=== PATIENT | female | born 1965 | race African-American/Black ===

== ENCOUNTER 2016-10-30 04:26 | Emergency (ER) | payer OTHER ==
[2016-10-30] MEDS ORDERED: Ketorolac Tromethamine 60 MG/2 ML VIAL ONE (04:44)
== END 2016-10-30 05:05 | disposition home or self-care (01) ==
LOC: NAV ERS 04:26
DX: G89.29 Other chronic pain (principal); M79.605 Pain in left leg; F14.10 Cocaine abuse, uncomplicated; F31.9 Bipolar disorder, unspecified; F20.9 Schizophrenia, unspecified; F17.210 Nicotine dependence, cigarettes, uncomplicated
CPT/HCPCS: 96372; 99283; J1885

== ENCOUNTER 2016-10-30 06:28 | Emergency (ER) | payer OTHER | END 2016-10-30 06:57 | disposition home or self-care (01) | LOC: NAV ERS 06:28 | DX: M62.831 Muscle spasm of calf (principal); F17.210 Nicotine dependence, cigarettes, uncomplicated ==

== ENCOUNTER 2017-06-02 22:21 | Emergency (ER) | payer OTHER, SELFPAY ==
[2017-06-02] MEDS ORDERED: Sodium Chloride 0.9% 100 ML ONE (22:52)
[2017-06-02] MEDS ORDERED: diphenhydrAMINE 50 MG/ML VIAL ONE (22:52)
[2017-06-02] MEDS ORDERED: Metoclopramide HCl 10 MG/2 ML VIAL ONE (22:52)
[2017-06-02] MEDS ORDERED: Sodium Chloride 0.9% 1,000 ML ONE (22:52)
[2017-06-02 23:26] LABS: #Basophils 0.1 thou/uL (0.0-0.2); #Eosinphils 0.2 thou/uL (0.0-0.7); #Lymphocytes 1.9 thou/uL (1.20-3.40); #Monocytes 0.5 thou/uL (0.11-0.59); #Neutrophils 11.1 thou/uL (1.40-6.50); %Basophils 0.7 % (0.0-1.0); %Eosinophils 1.5 % (0.0-10.0); %Lymphocytes 13.4 % (21.0-51.0); %Monocytes 3.8 % (0.0-10.0); %Neutrophils 80.6 % (42.0-75.0); Hemoglobin 13.1 g/dL (12.0-16.0); Mean Corpuscular Hemoglobin 31.9 pg (27.0-31.0); Mean Corpuscular Volume 93.9 fl (81.0-99.0); Mean Platelet Volume 8.2 fL (7.4-10.4); Platelet Count 246 thou/uL (130-400); RBC Distribution Width 11.7 % (11.5-14.5); Red Blood Cell (RBC) Count 4.11 mill/uL (4.20-5.40); White Blood Cell (WBC) Count 13.8 thou/uL (4.8-10.8)
[2017-06-02 23:39] LABS: ALT (SGPT) 18 U/L (8-55); AST (SGOT) 21 U/L (5-34); Albumin 4.1 g/dL (3.5-5.0); Alkaline Phosphatase 75 U/L (40-150); Anion Gap 15 mmol/L (10-20); BUN (Urea Nitrogen) 13 mg/dL (9.8-20.1); Bilirubin, Total 0.2 mg/dL (0.2-1.2); Calc. Creatinine Clearance 0 mL/min (70-130); Calcium 8.9 mg/dL (7.8-10.44); Carbon Dioxide 21 mmol/L (22-29); Chloride 103 mmol/L (98-107); Estimated GFR-MDRD Greater than 90; Globulin 2.8 g/dL (2.4-3.5); Glucose 100 mg/dL (70-105); Potassium 3.8 mmol/L (3.5-5.1); Protein, Total 6.9 g/dL (6.0-8.3); Sodium 135 mmol/L (136-145)
== END 2017-06-03 01:54 | disposition home or self-care (01) ==
LOC: NAV ERS 22:21
DX: F14.10 Cocaine abuse, uncomplicated (principal); R51 Headache; F41.9 Anxiety disorder, unspecified; F31.9 Bipolar disorder, unspecified; F20.9 Schizophrenia, unspecified; F17.210 Nicotine dependence, cigarettes, uncomplicated; Z79.899 Other long term (current) drug therapy
CPT/HCPCS: 80053; 85025; 96361; 96365; 96375; J1200; J2765; J7050

== ENCOUNTER 2017-06-24 13:26 | Emergency (ER) | payer OTHER ==
[2017-06-24] MEDS ORDERED: Ketorolac Tromethamine 60 MG/2 ML VIAL ONE (13:46)
--- NOTE | 2017-06-24 15:27 | RAD ---
RIGHT ELBOW 4 VIEW SERIES: INDICATION: Pain and swelling. FINDINGS: No fracture or dislocation identified. There is heterotopic density about the olecranon bursa with a djacent enthesophyte formation. IMPRESSION: 1. No acute fracture. 2. Soft tissue density of the region of olecranon bursa with mild soft tissue prominence. There is adjacent enthesopathy of the olecranon process. POS: [facility]
== END 2017-06-24 14:32 | disposition home or self-care (01) ==
LOC: NAV ERS 13:26
DX: S83.92XA Sprain of unspecified site of left knee, initial encounter (principal); M25.521 Pain in right elbow; F31.9 Bipolar disorder, unspecified; F20.9 Schizophrenia, unspecified; F17.210 Nicotine dependence, cigarettes, uncomplicated; Z79.899 Other long term (current) drug therapy; W01.0XXA Fall on same level from slipping, tripping and stumbling without subsequent striking against object, initial encounter
CPT/HCPCS: 96372; J1885

== ENCOUNTER 2018-06-27 03:38 | Emergency (ER) | payer BC, OTHER | END 2018-06-27 04:24 | disposition home or self-care (01) | LOC: NAV ERS 03:38 | DX: M79.652 Pain in left thigh (principal); M25.512 Pain in left shoulder; M25.511 Pain in right shoulder; G89.29 Other chronic pain; Z79.899 Other long term (current) drug therapy | CPT/HCPCS: 99281 ==

== ENCOUNTER 2018-08-15 20:31 | Emergency (ER) | payer BC ==
[2018-08-15] MEDS ORDERED: HYDROcodone/Acetaminophen 5/325 mg Tablet ONE (21:09)
[2018-08-15] MEDS ORDERED: Naproxen 500 MG TAB ONE (21:09)
== END 2018-08-15 21:15 | disposition home or self-care (01) ==
LOC: NAV ERS 20:31
DX: S39.011A Strain of muscle, fascia and tendon of abdomen, initial encounter (principal); F20.9 Schizophrenia, unspecified; F31.9 Bipolar disorder, unspecified; Z79.899 Other long term (current) drug therapy; X58.XXXA Exposure to other specified factors, initial encounter
CPT/HCPCS: 99283

== ENCOUNTER 2018-09-02 04:00 | Emergency (ER) | payer BC | END 2018-09-02 04:30 | disposition home or self-care (01) | LOC: NAV ERS 04:00 | DX: K62.89 Other specified diseases of anus and rectum (principal); Z79.899 Other long term (current) drug therapy; Z79.891 Long term (current) use of opiate analgesic | CPT/HCPCS: 99281 ==

== ENCOUNTER 2018-09-07 19:05 | Emergency (ER) | payer BC | END 2018-09-07 19:29 | disposition home or self-care (01) | LOC: NAV ERS 19:05 | DX: S80.12XA Contusion of left lower leg, initial encounter (principal); Z71.6 Tobacco abuse counseling; F31.9 Bipolar disorder, unspecified; F20.9 Schizophrenia, unspecified; F17.210 Nicotine dependence, cigarettes, uncomplicated; Z79.899 Other long term (current) drug therapy; X58.XXXA Exposure to other specified factors, initial encounter | CPT/HCPCS: 99406 ==

== ENCOUNTER 2019-04-13 00:05 | Emergency (ER) | payer BC | END 2019-04-13 00:56 | disposition home or self-care (01) | LOC: NAV ERS 00:05 | DX: J31.2 Chronic pharyngitis (principal); F31.9 Bipolar disorder, unspecified; F20.9 Schizophrenia, unspecified; F17.210 Nicotine dependence, cigarettes, uncomplicated; Z79.899 Other long term (current) drug therapy | CPT/HCPCS: 87081; 87430; 99281 ==

== ENCOUNTER 2019-11-17 18:50 | Emergency (ER) | payer BC, OTHER | END 2019-11-17 19:20 | disposition home or self-care (01) | LOC: NAV ERS 18:50 | DX: L73.1 Pseudofolliculitis barbae (principal); F31.9 Bipolar disorder, unspecified; F17.210 Nicotine dependence, cigarettes, uncomplicated; F20.9 Schizophrenia, unspecified; Z71.6 Tobacco abuse counseling; Z79.899 Other long term (current) drug therapy | CPT/HCPCS: 99406 ==

== ENCOUNTER 2019-11-21 20:08 | Emergency (ER) | payer OTHER ==
[2019-11-21 20:44] LABS: Bilirubin Negative (Negative); Blood, Urine Trace (Negative); Glucose, Urine (Dipstick) Negative (Negative); Leukocyte Moderate (Negative); Nitrite Negative (Negative); Protein, Urine (Dipstick) Negative (Neg-Trace)
[2019-11-21 20:53] LABS: Clarity SL HAZY (Clear)
[2019-11-21 20:55] LABS: Bacteria/HPF 1+ HPF (None Seen); RBC/HPF 0-3 HPF (0-3); Squamous Epithelial 0-3 HPF (0-3); WBC/HPF 21-50 HPF (0-3)
[2019-11-21] MEDS ORDERED: metroNIDAZOLE 500 MG TAB ONE (21:38)
[2019-11-26 21:17] LABS: GC by PCR Inconclusive (NotDetected)
[2019-11-26 21:18] LABS: Chlamydia by PCR Inconclusive (NotDetected)
== END 2019-11-21 21:47 | disposition home or self-care (01) ==
LOC: NAV ERS 20:08
DX: N89.8 Other specified noninflammatory disorders of vagina (principal); F31.9 Bipolar disorder, unspecified; F20.9 Schizophrenia, unspecified; F17.210 Nicotine dependence, cigarettes, uncomplicated; Z79.899 Other long term (current) drug therapy
CPT/HCPCS: 81003; 81015; 87086; 87480; 87491; 87510; 87591; 87660; 99283

== ENCOUNTER 2020-05-31 06:55 | Emergency (ER) | payer OTHER ==
[2020-05-31] MEDS ORDERED: Ketorolac Tromethamine 60 MG/2 ML VIAL ONE (07:40)
== END 2020-05-31 07:50 | disposition home or self-care (01) ==
LOC: NAV ERS 06:55
DX: M54.5 Low back pain (principal); G89.29 Other chronic pain; F17.210 Nicotine dependence, cigarettes, uncomplicated; Z79.899 Other long term (current) drug therapy
CPT/HCPCS: 96372; 99283; J1885

== ENCOUNTER 2020-06-04 00:17 | Emergency (ER) | payer OTHER ==
[2020-06-04] MEDS ORDERED: Ketorolac Tromethamine 60 MG/2 ML VIAL ONE (00:33)
== END 2020-06-04 00:58 | disposition home or self-care (01) ==
LOC: NAV ERS 00:17
DX: M54.6 Pain in thoracic spine (principal); G89.29 Other chronic pain; F17.210 Nicotine dependence, cigarettes, uncomplicated
CPT/HCPCS: 96372; 99283; J1885

== ENCOUNTER 2020-07-18 06:32 | Emergency (ER) | payer OTHER ==
[2020-07-18] MEDS ORDERED: diphenhydrAMINE 50 MG/ML VIAL ONE (07:40)
[2020-07-18] MEDS ORDERED: Prochlorperazine 10 MG/2 ML VIAL ONE (07:40)
[2020-07-18] MEDS ORDERED: Ketorolac Tromethamine 30 MG/ML VIAL ONE (07:40)
[2020-07-18] MEDS ORDERED: Sodium Chloride 0.9% 1,000 ML ONE (07:40)
== END 2020-07-18 09:53 | disposition home or self-care (01) ==
LOC: NAV ERS 06:32
DX: R51.9 Headache, unspecified (principal); G89.29 Other chronic pain; M54.42 Lumbago with sciatica, left side; F17.210 Nicotine dependence, cigarettes, uncomplicated
CPT/HCPCS: J0780; J1200; J1885; J7050

== ENCOUNTER 2020-09-24 15:42 | Outpatient (CLI) | payer OTHER | END 2020-09-24 15:43 | disposition home or self-care (01) | LOC: NAV RAD 15:42 | PROVIDERS: ATTEND Family Medicine | DX: M25.511 Pain in right shoulder (principal); M19.011 Primary osteoarthritis, right shoulder ==

== ENCOUNTER 2020-10-15 19:17 | Emergency (ER) | payer OTHER ==
[2020-10-15 19:57] LABS: #Basophils 0.1 thou/uL (0.0-0.2); #Eosinphils 0.4 thou/uL (0.0-0.7); #Lymphocytes 4.4 thou/uL (1.20-3.40); #Monocytes 0.6 thou/uL (0.11-0.59); #Neutrophils 5.6 thou/uL (1.40-6.50); %Basophils 0.7 % (0.0-1.0); %Eosinophils 3.6 % (0.0-10.0); %Lymphocytes 39.9 % (21.0-51.0); %Monocytes 5.1 % (0.0-10.0); %Neutrophils 50.7 % (42.0-75.0); Hemoglobin 12.2 g/dL (12.0-16.0); Mean Corpuscular Hemoglobin 30.9 pg (27.0-31.0); Mean Corpuscular Volume 99.7 fL (78.0-98.0); Mean Platelet Volume 8.4 fL (7.4-10.4); Platelet Count 221 thou/uL (130-400); RBC Distribution Width 12.4 % (11.5-14.5); Red Blood Cell (RBC) Count 3.95 mill/uL (4.20-5.40)
[2020-10-15 20:04] LABS: Bilirubin Negative (Negative); Blood, Urine Negative (Negative); Clarity Clear (Clear); Glucose, Urine (Dipstick) Negative (Negative); Ketone, Urine Negative (Negative); Leukocyte Negative (Negative); Nitrite Negative (Negative); Protein, Urine (Dipstick) Negative (Neg-Trace); Specific Gravity, Urine 1.025 (1.005-1.030)
[2020-10-15] MEDS ORDERED: Lorazepam 0.5 MG TAB ONE (20:15)
[2020-10-15 20:18] LABS: Amphetamine Not Detected (NotDetected); Barbiturates Screen Not Detected (NotDetected); Benzodiazepine Screen Not Detected (NotDetected); Cocaine Metabolite Screen Not Detected (NotDetected); Medtox Control Line Valid? VALID (VALID); Methadone Not Detected (NotDetected); Methamphetamine Not Detected (NotDetected); Opiate Screen Not Detected (NotDetected); Oxycodone Screen Not Detected (NotDetected); Phencyclidine (PCP) Not Detected (NotDetected); THC/Cannabinoid Screen Not Detected (NotDetected); Tricyclic Screen Not Detected (NotDetected)
[2020-10-15 20:20] LABS: ALT (SGPT) 14 U/L (8-55); AST (SGOT) 17 U/L (5-34); Acetaminophen Less than 6.0 mcg/mL (10.0-30.0); Alcohol Less than 10 mg/dL (Less than 10); Alkaline Phosphatase 56 U/L (40-110); Anion Gap 14 mmol/L (10-20); BUN (Urea Nitrogen) 21 mg/dL (9.8-20.1); Bilirubin, Total 0.2 mg/dL (0.2-1.2); Calc. Creatinine Clearance 0 mL/min (70-130); Calcium 8.9 mg/dL (7.8-10.44); Carbon Dioxide 23 mmol/L (22-29); Chloride 107 mmol/L (98-107); Glucose 84 mg/dL (70-105); Protein, Total 6.8 g/dL (6.0-8.3); Salicylate Less than 8.0 mg/dL (15.0-30.0); Sodium 140 mmol/L (136-145)
[2020-10-15] MEDS ORDERED: Nicotine 21 MG PATCH TOP SCH (22:15)
[2020-10-15 22:27] LABS: SARS-CoV-2 NAA Rapid Test Not Detected (NotDetected)
[2020-10-16] MEDS ORDERED: diphenhydrAMINE 25 MG CAP ONE (01:54)
[2020-10-16] MEDS ORDERED: Ibuprofen 200 MG TAB ONE (10:37)
== END 2020-10-16 11:43 ==
LOC: NAV ERS 19:17
DX: F31.9 Bipolar disorder, unspecified (principal); F17.210 Nicotine dependence, cigarettes, uncomplicated; Z79.899 Other long term (current) drug therapy
CPT/HCPCS: 0240U; 36415; 80053; 80306; 80307; 81003; 84443; 85025; 99285; Q0163

== ENCOUNTER 2021-01-05 02:32 | Emergency (ER) | payer OTHER | END 2021-01-05 03:00 | disposition home or self-care (01) | LOC: NAV ERS 02:32 | DX: G89.29 Other chronic pain (principal); M79.605 Pain in left leg; M79.604 Pain in right leg; F17.210 Nicotine dependence, cigarettes, uncomplicated; Z79.899 Other long term (current) drug therapy | CPT/HCPCS: 99281 ==

== ENCOUNTER 2021-04-09 15:47 | Emergency (ER) | payer OTHER ==
[2021-04-09] MEDS ORDERED: Morphine 4 MG/ML VIAL ONE (16:19)
[2021-04-09] MEDS ORDERED: Sodium Chloride 0.9% 1,000 ML ONE (16:20)
[2021-04-09] MEDS ORDERED: Ondansetron PF 4 MG/2 ML Vial ONE (16:20)
[2021-04-09] MEDS ORDERED: Ketorolac Tromethamine 30 MG/ML VIAL ONE (16:26)
[2021-04-09] MEDS ORDERED: Prochlorperazine 10 MG/2 ML VIAL ONE (17:02)
[2021-04-09] MEDS ORDERED: diphenhydrAMINE 50 MG/ML VIAL ONE (17:12)
[2021-04-09] MEDS ORDERED: Acetaminophen 325 MG TAB ONE (17:50)
== END 2021-04-09 17:59 | disposition home or self-care (01) ==
LOC: NAV ERS 15:47
DX: M26.602 Left temporomandibular joint disorder, unspecified (principal); R51.9 Headache, unspecified; F17.210 Nicotine dependence, cigarettes, uncomplicated
CPT/HCPCS: 70450; 96374; 96375; J0780; J1200; J1885; J2270; J2405; J7050

== ENCOUNTER 2021-04-18 10:43 | Emergency (ER) | payer OTHER ==
[2021-04-18] MEDS ORDERED: Ketorolac Tromethamine 30 MG/ML VIAL ONE (11:06)
== END 2021-04-18 11:25 | disposition home or self-care (01) ==
LOC: NAV ERS 10:43
DX: K02.9 Dental caries, unspecified (principal); F17.210 Nicotine dependence, cigarettes, uncomplicated
CPT/HCPCS: J1885

== ENCOUNTER 2021-04-18 22:13 | Emergency (ER) | payer OTHER ==
[2021-04-18] MEDS ORDERED: Ketorolac Tromethamine 60 MG/2 ML VIAL ONE (22:33)
== END 2021-04-18 22:52 | disposition home or self-care (01) ==
LOC: NAV ERS 22:13
DX: G89.18 Other acute postprocedural pain (principal); K08.89 Other specified disorders of teeth and supporting structures; K02.9 Dental caries, unspecified; F17.210 Nicotine dependence, cigarettes, uncomplicated
CPT/HCPCS: 96372; 99282; J1885

== ENCOUNTER 2021-04-20 21:43 | Emergency (ER) | payer OTHER | END 2021-04-20 22:12 | disposition left against medical advice (07) | LOC: NAV ERS 21:43 | DX: Z53.21 Procedure and treatment not carried out due to patient leaving prior to being seen by health care provider (principal) ==

== ENCOUNTER 2021-04-25 11:54 | Emergency (ER) | payer OTHER ==
[2021-04-25] MEDS ORDERED: Ketorolac Tromethamine 30 MG/ML VIAL ONE (12:44)
== END 2021-04-25 13:01 | disposition home or self-care (01) ==
LOC: NAV ERS 11:54
DX: K02.9 Dental caries, unspecified (principal); R68.84 Jaw pain; R51.9 Headache, unspecified; F17.210 Nicotine dependence, cigarettes, uncomplicated
CPT/HCPCS: 96372; 99283; J1885

== ENCOUNTER 2021-05-26 17:33 | Emergency (ER) | payer OTHER ==
[2021-05-26] MEDS ORDERED: Ketorolac Tromethamine 60 MG/2 ML VIAL ONE (18:16)
[2021-05-26 18:39] LABS: #Eosinphils 0.2 thou/uL (0.0-0.7); #Lymphocytes 2.5 thou/uL (1.20-3.40); #Monocytes 0.7 thou/uL (0.11-0.59); #Neutrophils 4.5 thou/uL (1.40-6.50); %Basophils 0.5 % (0.0-1.0); %Eosinophils 2.1 % (0.0-10.0); %Lymphocytes 31.7 % (21.0-51.0); %Monocytes 8.4 % (0.0-10.0); %Neutrophils 57.3 % (42.0-75.0); Hemoglobin 13.8 g/dL (12.0-16.0); Mean Corpuscular HGB CONC 31.9 g/dL (32.0-36.0); Mean Corpuscular Hemoglobin 31.9 pg (27.0-31.0); Mean Corpuscular Volume 99.9 fL (78.0-98.0); Mean Platelet Volume 7.5 fL (7.4-10.4); Platelet Count 208 thou/uL (130-400); Red Blood Cell (RBC) Count 4.32 mill/uL (4.20-5.40); White Blood Cell (WBC) Count 7.8 thou/uL (4.8-10.8)
[2021-05-26 19:00] LABS: ALT (SGPT) 14 U/L (8-55); AST (SGOT) 15 U/L (5-34); Albumin 3.8 g/dL (3.5-5.0); Alkaline Phosphatase 67 U/L (40-110); Anion Gap 13 mmol/L (10-20); BUN (Urea Nitrogen) 6 mg/dL (9.8-20.1); Bilirubin, Total 0.3 mg/dL (0.2-1.2); Calc. Creatinine Clearance 0 mL/min (70-130); Calcium 9.1 mg/dL (7.8-10.44); Carbon Dioxide 21 mmol/L (22-29); Chloride 97 mmol/L (98-107); Glucose 90 mg/dL (70-105); Potassium 3.7 mmol/L (3.5-5.1); Protein, Total 6.8 g/dL (6.0-8.3); Sodium 127 mmol/L (136-145)
[2021-05-26 19:14] LABS: Bilirubin Small (Negative); Blood, Urine Trace (Negative); Glucose, Urine (Dipstick) Negative (Negative); Ketone, Urine Trace mg/dL (Negative); Leukocyte Negative (Negative); Nitrite Negative (Negative); Protein, Urine (Dipstick) Trace mg/dL (Neg-Trace); pH, Urine 6.5 (5.0-9.0)
[2021-05-26 19:15] LABS: Clarity SL HAZY (Clear)
[2021-05-26 19:23] LABS: Calcium Oxalate Crystals Rare HPF (None Seen); RBC/HPF 0-3 HPF (0-3); Squamous Epithelial 0-3 HPF (0-3); WBC/HPF 0-3 HPF (0-3)
[2021-05-26] MEDS ORDERED: Sodium Chloride 0.9% 1,000 ML ONE (19:24)
== END 2021-05-26 20:18 | disposition home or self-care (01) ==
LOC: NAV ERS 17:33
DX: M79.605 Pain in left leg (principal); E87.1 Hypo-osmolality and hyponatremia; F17.210 Nicotine dependence, cigarettes, uncomplicated
CPT/HCPCS: 80053; 81003; 81015; 85025; 85379; 96372; 99283; J1885; J7050

== ENCOUNTER 2021-06-30 12:39 | Emergency (ER) | payer OTHER ==
[2021-07-01 13:39] LABS: SARS-CoV-2 PCR by NAA Not Detected (NotDetected)
== END 2021-06-30 13:18 | disposition home or self-care (01) ==
LOC: NAV ERS 12:39
DX: J20.9 Acute bronchitis, unspecified (principal); Z20.822 Contact with and (suspected) exposure to COVID-19; F17.210 Nicotine dependence, cigarettes, uncomplicated
CPT/HCPCS: 99283; U0003; U0005

== ENCOUNTER 2021-08-10 20:32 | Emergency (ER) | payer OTHER ==
[2021-08-10] MEDS ORDERED: Boostrix 0.5 ML (Tdap) VIAL ONE (21:02)
[2021-08-10] MEDS ORDERED: Acetaminophen 325 MG TAB ONE ×2 (21:05)
[2021-08-10] MEDS ORDERED: Ketorolac Tromethamine 30 MG/ML VIAL ONE (21:35)
[2021-08-10] MEDS ORDERED: Bacitracin 1 PK ONE (22:03)
== END 2021-08-10 22:07 | disposition home or self-care (01) ==
LOC: NAV ERS 20:32
DX: S80.01XA Contusion of right knee, initial encounter (principal); M70.41 Prepatellar bursitis, right knee; F17.210 Nicotine dependence, cigarettes, uncomplicated; W01.0XXA Fall on same level from slipping, tripping and stumbling without subsequent striking against object, initial encounter; Y93.E9 Activity, other interior property and clothing maintenance; Y92.009 Unspecified place in unspecified non-institutional (private) residence as the place of occurrence of the external cause; Z23 Encounter for immunization; Z79.899 Other long term (current) drug therapy
CPT/HCPCS: 90471; 90715; 96372; J1885

== ENCOUNTER 2021-08-14 20:27 | Emergency (ER) | payer OTHER ==
[2021-08-14 20:55] LABS: Bilirubin Negative (Negative); Blood, Urine Trace (Negative); Glucose, Urine (Dipstick) Negative (Negative); Ketone, Urine Trace mg/dL (Negative); Leukocyte Negative (Negative); Nitrite Negative (Negative); Protein, Urine (Dipstick) Negative (Neg-Trace)
[2021-08-14 20:57] LABS: Clarity SL HAZY (Clear); Specific Gravity, Urine 1.027 (1.002-1.036)
[2021-08-14 21:04] LABS: Bacteria/HPF Rare-Few HPF (None Seen); RBC/HPF 0-3 HPF (0-3); Squamous Epithelial 0-3 HPF (0-3); WBC/HPF None Seen HPF (0-3)
[2021-08-14 21:17] LABS: #Basophils 0.1 thou/uL (0.0-0.2); #Eosinphils 0.3 thou/uL (0.0-0.7); #Lymphocytes 3.3 thou/uL (1.20-3.40); #Monocytes 0.6 thou/uL (0.11-0.59); #Neutrophils 4.8 thou/uL (1.40-6.50); %Basophils 0.8 % (0.0-1.0); %Eosinophils 2.9 % (0.0-10.0); %Lymphocytes 36.6 % (21.0-51.0); %Monocytes 6.5 % (0.0-10.0); %Neutrophils 53.2 % (42.0-75.0); Hemoglobin 12.6 g/dL (12.0-16.0); Mean Corpuscular HGB CONC 33.8 g/dL (32.0-36.0); Mean Corpuscular Hemoglobin 32.4 pg (27.0-31.0); Mean Corpuscular Volume 95.8 fL (78.0-98.0); Mean Platelet Volume 8.6 fL (7.4-10.4); Platelet Count 228 thou/uL (130-400); RBC Distribution Width 12.5 % (11.5-14.5); Red Blood Cell (RBC) Count 3.89 mill/uL (4.20-5.40); White Blood Cell (WBC) Count 9.1 thou/uL (4.8-10.8)
[2021-08-14 21:29] LABS: ALT (SGPT) 15 U/L (8-55); AST (SGOT) 16 U/L (5-34); Alkaline Phosphatase 62 U/L (40-110); Anion Gap 12 mmol/L (10-20); BUN (Urea Nitrogen) 14 mg/dL (9.8-20.1); Bilirubin, Total 0.2 mg/dL (0.2-1.2); Calc. Creatinine Clearance 0 mL/min (70-130); Calcium 8.7 mg/dL (7.8-10.44); Carbon Dioxide 26 mmol/L (22-29); Chloride 102 mmol/L (98-107); Globulin 2.9 g/dL (2.4-3.5); Glucose 99 mg/dL (70-105); Lipase 10 U/L (8-78); Potassium 3.8 mmol/L (3.5-5.1); Protein, Total 6.9 g/dL (6.0-8.3); Sodium 136 mmol/L (136-145)
== END 2021-08-14 21:45 | disposition home or self-care (01) ==
LOC: NAV ERS 20:27
DX: R10.32 Left lower quadrant pain (principal); G89.29 Other chronic pain; F17.210 Nicotine dependence, cigarettes, uncomplicated; Z79.899 Other long term (current) drug therapy
CPT/HCPCS: 74176; 80053; 81003; 81015; 83690; 85025

== ENCOUNTER 2021-09-14 07:25 | Emergency (ER) | payer OTHER | END 2021-09-14 08:35 | disposition home or self-care (01) | LOC: NAV ERS 07:25 | DX: G89.29 Other chronic pain (principal); M25.552 Pain in left hip; F17.210 Nicotine dependence, cigarettes, uncomplicated; Z79.899 Other long term (current) drug therapy | CPT/HCPCS: 99281 ==

== ENCOUNTER 2023-08-17 14:25 | Outpatient (CLI) | payer MEDICARE | END 2023-08-17 14:26 | disposition home or self-care (01) | LOC: NAV RAD 14:25 | PROVIDERS: ATTEND Nurse Practitioner Family | DX: M25.511 Pain in right shoulder (principal); M54.2 Cervicalgia; M47.812 Spondylosis without myelopathy or radiculopathy, cervical region; R91.8 Other nonspecific abnormal finding of lung field; R93.7 Abnormal findings on diagnostic imaging of other parts of musculoskeletal system | CPT/HCPCS: 72040 ==

== ENCOUNTER 2023-08-18 12:47 | Outpatient (CLI) | payer MEDICARE | END 2023-08-18 12:48 | disposition home or self-care (01) | LOC: NAV RAD 12:47 | PROVIDERS: ATTEND Family Medicine | DX: R91.8 Other nonspecific abnormal finding of lung field (principal) | CPT/HCPCS: 71046 ==

== ENCOUNTER 2023-11-17 16:47 | Emergency (ER) | payer MEDICARE, OTHER ==
[2023-11-17] MEDS ORDERED: Ketorolac Tromethamine 30 MG (1 mL) VIAL ONE (17:50)
== END 2023-11-17 19:01 | disposition home or self-care (01) ==
LOC: NAV ERS 16:47
DX: M79.662 Pain in left lower leg (principal); F17.210 Nicotine dependence, cigarettes, uncomplicated
CPT/HCPCS: 85379; 96372; J1885